=== PATIENT | male | born 2000 | race Caucasian/White ===

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

== ENCOUNTER 2019-05-09 20:28 | Emergency (ER) | payer MEDICAID ==
[~2019-05-09] VITALS: Ht 165.1 cm; Wt 67.3 kg
[~2019-05-09 20:28] MED LIST: BENZ1LOZ52 MM; IBUP-1542 PO; LIDO20SO19 MM
[2019-05-09 20:44] VITALS: Ht 165.1 cm; Wt 67.3 kg
[2019-05-09 22:53] VITALS: BP 132/67; PULSE 62; RESP 16
== END 2019-05-09 22:54 | disposition home or self-care (01) ==
LOC: FTE 20:28
DX: J02.9 Acute pharyngitis, unspecified (principal); J04.0 Acute laryngitis
CPT/HCPCS: 70490; Z7502